=== PATIENT | male | born 1975 | race Caucasian/White ===

== ENCOUNTER 2021-01-14 18:54 | Inpatient (IN) | payer BC, OTHER ==
[2021-01-14] MEDS ORDERED: SODIUM CHLORIDE 1,000 ML IV STA (22:04)
[2021-01-14] MEDS ORDERED: ONDANSETRON 4 MG/2 ML VIAL IVPUSH ONE (22:05)
[2021-01-14] MEDS ORDERED: FAMOTIDINE 20 MG/50 ML IVPB 20 MG/50 ML MG IVPB ONE ×2 (22:05→22:48)
[2021-01-14] MEDS ORDERED: ONDANSETRON 4 MG/2 ML VIAL ONE (22:48)
[2021-01-14 23:22] LABS: BASO % 0.2 % (0-2.0); HEMATOCRIT 42.5 % (35.4-49); HEMOGLOBIN 14.4 GM/dL (11.7-16.9); LYMPH % 36.2 % (8-40); MCH 32.7 pg (25.7-33.7); MCHC 33.8 g/dl (32.0-35.9); MEAN CELL VOLUME 96.7 fl (80-96); MEAN PLT VOLUME 7.3 fl (7.5-11.1); MONO % 2.3 % (3.8-10.2); NEUT % 61.3 % (42.8-82.8); PLATELET COUNT 398 K/MM3 (134-434); RBC 4.39 M/mm3 (4.00-5.60); RDW 14.3 % (11.9-15.9); WHITE BLOOD COUNT 26.6 K/mm3 (4.0-10.0)
[2021-01-14 23:45] LABS: CHLORIDE 103 mmol/L (98-107); POTASSIUM 4.1 mmol/L (3.5-5.1); SODIUM 139 mmol/L (136-145)
[2021-01-14 23:48] LABS: CALCIUM 9.5 mg/dL (8.5-10.1)
[2021-01-14 23:49] LABS: ALBUMIN 4.3 g/dl (3.4-5.0); ANION GAP 10 MMOL/L (8-16); BLOOD UREA NITROGEN 15.7 mg/dL (7-18); CO2 27 mmol/L (21-32); GLUCOSE,RANDOM 126 mg/dL (74-106)
[2021-01-14 23:52] LABS: CREATININE 1.1 mg/dL (0.55-1.3); SGOT/AST 20 U/L (15-37); SGPT/ALT 43 U/L (13-61)
[2021-01-14 23:53] LABS: BILIRUBIN,TOTAL 0.7 mg/dL (0.2-1)
[2021-01-14 23:54] LABS: ANISOCYTOSIS 1+; MACROCYTOSIS 0; PLATELET ESTIMATE NORMAL; TOT PROT 7.7 g/dl (6.4-8.2)
[2021-01-14 23:55] LABS: ALK PHOS 89 U/L (45-117)
[2021-01-15] MEDS ORDERED: CEFTRIAXONE 1 GM in DEXTROSE 5%-WATER - 50 ML IVPB ONE (01:52)
[2021-01-15] MEDS ORDERED: SODIUM CHLORIDE 1,000 ML IV SCH (02:15)
[2021-01-15] MEDS ORDERED: morphine CARPU-JECT 2 MG/1 ML DISP.SYRIN IVPUSH ONE (02:21)
[2021-01-15] MEDS ORDERED: MORPHINE SULFATE 2 MG/ML VIAL ONE ×2 (02:22→07:25)
[2021-01-15] MEDS ORDERED: CEFTRIAXONE 1 GM/50 ML BAG ONE (02:22)
[2021-01-15] MEDS ORDERED: PIPERACILLIN/TAZOB 3.375 GM 3.375 GM in DEXTROSE 5%-WATER - 50 ML IVPB ONE (04:30)
[2021-01-15] MEDS ORDERED: KCL 10 MEQ IVPB 10 MEQ/100 ML INFUS.BAG IVPB SCH (04:30)
[2021-01-15] MEDS ORDERED: MORPHINE SULFATE 2 MG/ML VIAL IVPUSH PRN ×2 (05:33→11:31)
[2021-01-15] MEDS ORDERED: PIPERACILLIN/TAZOB 3.375 GM 3.375 GM/50 ML BAG IVPB ONE (06:19)
[2021-01-15] MEDS ORDERED: ONDANSETRON 4 MG/2 ML VIAL IVPUSH PRN ×2 (08:00→11:31)
[2021-01-15] MEDS ORDERED: LACTATED RINGERS SOLUTION 1,000 ML IV SCH (08:00)
[2021-01-15 08:20] LABS: HEMATOCRIT 39.3 % (35.4-49); HEMOGLOBIN 13.1 GM/dL (11.7-16.9); MCH 32.5 pg (25.7-33.7); MCHC 33.4 g/dl (32.0-35.9); MEAN CELL VOLUME 97.4 fl (80-96); MEAN PLT VOLUME 7.4 fl (7.5-11.1); PLATELET COUNT 375 K/MM3 (134-434); RBC 4.04 M/mm3 (4.00-5.60); RDW 14.2 % (11.9-15.9); WHITE BLOOD COUNT 26.5 K/mm3 (4.0-10.0)
[2021-01-15 08:45] LABS: POTASSIUM 4.4 mmol/L (3.5-5.1)
[2021-01-15 08:55] LABS: ALBUMIN 3.7 g/dl (3.4-5.0); BLOOD UREA NITROGEN 13.4 mg/dL (7-18); CALCIUM 8.8 mg/dL (8.5-10.1)
[2021-01-15 08:56] LABS: MAGNESIUM 2.2 mg/dL (1.8-2.4)
[2021-01-15 08:58] LABS: CREATININE 0.9 mg/dL (0.55-1.3); PHOSPHOROUS 3.1 mg/dL (2.5-4.9)
[2021-01-15 08:59] LABS: BILIRUBIN,TOTAL 0.7 mg/dL (0.2-1); TOT PROT 6.8 g/dl (6.4-8.2)
[2021-01-15] MEDS ORDERED: PROPOFOL 20 ML ONE ×2 (09:22)
[2021-01-15] MEDS ORDERED: MIDAZOLAM HCL 2 MG/2 ML SINGLE DOSE VIAL ONE (09:22)
[2021-01-15] MEDS ORDERED: ROCURONIUM BROMIDE 50 MG/5 ML SYRINGE ONE (09:22)
[2021-01-15] MEDS ORDERED: LIDOCAINE HCL/PF 2% SDV 5ML VIAL ONE (09:22)
[2021-01-15] MEDS ORDERED: SUCCINYLCHOLINE CHLORIDE 200 MG/10 ML SYRINGE ONE (09:22)
[2021-01-15] MEDS ORDERED: DEXAMETHASONE SOD PHOSPHATE 4 MG/1 ML VIAL ONE (10:17)
[2021-01-15] MEDS ORDERED: KETOROLAC TROMETHAMINE 30 MG/1 ML VIAL ONE (10:17)
[2021-01-15] MEDS ORDERED: GLYCOPYRROLATE 0.2 MG/1 ML VIAL ONE (10:44)
[2021-01-15] MEDS ORDERED: NEOSTIGMINE METHYLSULFATE 0.5 MG/ML - 10 ML MDV ONE (10:44)
[2021-01-15] MEDS ORDERED: BUPIVACAINE HCL/PF 0.5% (5 MG/ML) 30 ML VIAL IJ ONE ×2 (10:46)
[2021-01-15] MEDS ORDERED: DOCUSATE SODIUM 100 MG CAPSULE (FP) PO PRN (11:26)
[2021-01-15] MEDS ORDERED: oxyCODONE HCL 5 MG TABLET PO PRN (11:26)
[2021-01-15 14:15] LABS: INR 1.05 (0.83-1.09); PROTHROMBIN TIME (PATIENT) 12.7 SEC (9.7-13.0)
[2021-01-15 15:00] VITALS: BMI 34.2
[2021-01-15] MEDS: LACTATED RINGERS SOLUTION 1,000 ML IV SCH ×2 (15:20→22:33)
[2021-01-16 08:06] LABS: BASO % 0.1 % (0-2.0); EOS % 0.1 % (0-4.5); HEMATOCRIT 34.4 % (35.4-49); HEMOGLOBIN 11.9 GM/dL (11.7-16.9); LYMPH % 42.3 % (8-40); MCH 32.9 pg (25.7-33.7); MCHC 34.5 g/dl (32.0-35.9); MEAN CELL VOLUME 95.4 fl (80-96); MEAN PLT VOLUME 7.2 fl (7.5-11.1); MONO % 5.3 % (3.8-10.2); NEUT % 52.2 % (42.8-82.8); PLATELET COUNT 346 K/MM3 (134-434); RBC 3.61 M/mm3 (4.00-5.60); RDW 14.4 % (11.9-15.9); WHITE BLOOD COUNT 21.2 K/mm3 (4.0-10.0)
[2021-01-16 08:25] LABS: POTASSIUM 3.6 mmol/L (3.5-5.1)
[2021-01-16 08:28] LABS: BLOOD UREA NITROGEN 12.1 mg/dL (7-18); CALCIUM 8.6 mg/dL (8.5-10.1)
[2021-01-16 08:32] LABS: CREATININE 0.8 mg/dL (0.55-1.3)
[2021-01-16 11:13] LABS: ANISOCYTOSIS 1+; MACROCYTOSIS 0; OVALOCYTE 1+; PLATELET ESTIMATE NORMAL
[2021-01-16] MEDS ORDERED: LACTATED RINGERS SOLUTION 1,000 ML/1,000 ML INFUS.BAG IV STA (11:40)
[2021-01-16] MEDS ORDERED: LACTATED RINGERS SOLUTION 1,000 ML/1,000 ML INFUS.BAG IV SCH (11:45)
[2021-01-17 06:19] VITALS: BP 111/71; PULSE 62; TEMP 98.2
[2021-01-17 06:44] LABS: BASO % 0.3 % (0-2.0); EOS % 1.8 % (0-4.5); HEMOGLOBIN 11.8 GM/dL (11.7-16.9); MCH 33.6 pg (25.7-33.7); MCHC 34.8 g/dl (32.0-35.9); MEAN CELL VOLUME 96.5 fl (80-96); MEAN PLT VOLUME 7.5 fl (7.5-11.1); NEUT % 21.9 % (42.8-82.8); PLATELET COUNT 323 K/MM3 (134-434); RBC 3.53 M/mm3 (4.00-5.60); RDW 14.2 % (11.9-15.9); WHITE BLOOD COUNT 18.5 K/mm3 (4.0-10.0)
[2021-01-17 07:09] LABS: POTASSIUM 3.9 mmol/L (3.5-5.1)
[2021-01-17 07:11] LABS: CALCIUM 8.3 mg/dL (8.5-10.1)
[2021-01-17 07:12] LABS: BLOOD UREA NITROGEN 11.1 mg/dL (7-18); MAGNESIUM 2.1 mg/dL (1.8-2.4)
[2021-01-17 07:15] LABS: CREATININE 0.9 mg/dL (0.55-1.3)
[2021-01-17 07:16] LABS: BILIRUBIN,TOTAL 0.4 mg/dL (0.2-1); TOT PROT 5.5 g/dl (6.4-8.2)
[2021-01-17 09:58] LABS: ANISOCYTOSIS 0; MACROCYTOSIS 0; PLATELET ESTIMATE NORMAL
== END 2021-01-17 14:52 | disposition home or self-care (01) | DRG 342 ==
LOC: JER 18:54 → JERBED 01-15 02:12 → J7W 01-15 12:11
PROVIDERS: ADMIT Internal Medicine; ATTEND Internal Medicine
PROC: 0DTJ0ZZ Resection of Appendix, Open Approach (ICD-10-PCS; principal; 2021-01-15 10:00)
DX: K35.80 Unspecified acute appendicitis (principal); C91.10 Chronic lymphocytic leukemia of B-cell type not having achieved remission; K29.70 Gastritis, unspecified, without bleeding; K21.9 Gastro-esophageal reflux disease without esophagitis; E66.9 Obesity, unspecified; Z68.34 Body mass index [BMI] 34.0-34.9, adult
CPT/HCPCS: 36415; 74177-TC; 80048; 80053; 82550; 83036; 83605; 83690; 83735; 84100; 84484; 85025; 85027; 85610; 86850; 86900; 86901; 87040; 88304-TC; 93005; 93010; 94760; 99285-25; C9803; Q9967; U0003